=== PATIENT | male | born 1980 | race African-American/Black ===

== ENCOUNTER 2021-09-22 14:25 | Emergency (ER) | payer MEDICARE, MEDICAID ==
[~2021-09-22] VITALS: Ht 177.8 cm; Wt 91.0 kg
[2021-09-22] MEDS ORDERED: IBUP-2028 MT (17:53)
[2021-09-22] MEDS ORDERED: TOPUD PO (17:53)
[2021-09-22] MEDS ORDERED: ACETAMINOPHEN 325MG TABLET PO ONE (18:00)
[2021-09-22] MEDS ORDERED: IBUPROFEN 400MG TABLET PO ONE (18:00)
[2021-09-22 18:06] VITALS: BP 155/89
== END 2021-09-22 18:05 | disposition home or self-care (01) ==
LOC: ER 14:25
DX: U07.1 COVID-19 (principal); R03.0 Elevated blood-pressure reading, without diagnosis of hypertension; R00.0 Tachycardia, unspecified
CPT/HCPCS: 99284; C9803; U0003; U0005